=== PATIENT | male | born 1975 | race Caucasian/White ===

== ENCOUNTER 2020-07-03 19:49 | Emergency (ER) | payer OTHER ==
[2020-07-03 21:17] LABS: EOSINOPHIL 3.9 % (0-5); HCT 45.7 % (42.0-52.0); HGB 15.7 g/dl (13.2-18.0); LYMPHOCYTE 25.5 % (15-48); MCH 31.5 pg (25.0-31.0); MCHC 34.4 g/dL (32.0-36.0); MCV 91.8 fL (78.0-100.0); MONOCYTE 6.5 % (0-12); MPV 11.3 fL (6.0-9.5); NEUTROPHIL 62.6 % (41-80); NRBC 0; PLT 286 K/uL (150-400); RBC 4.98 M/uL (4.70-6.00); RDW 12.7 % (11.5-14.0); WBC 7.9 K/uL (4.0-10.5)
[2020-07-03 21:22] LABS: BILIRUBIN NEGATIVE (NEGATIVE); BLOOD NEGATIVE Ery/uL (NEGATIVE); CLARITY CLEAR (CLEAR); COLOR COLORLESS (YELLOW); GLUCOSE (U) NORMAL (NORMAL); LEUKOCYTES NEGATIVE Leu/uL (NEGATIVE); NITRITE NEGATIVE (NEGATIVE); PROTEIN NEGATIVE (NEGATIVE); SPECIFIC GRAVITY <=1.005 (1.001-1.030); UROBILINOGEN 0.2 mg/dL (0.2-1.0); pH 5.5 (5.0-9.0)
[2020-07-03 21:34] LABS: BILIRUBIN - TOTAL 0.3 mg/dL (0.2-1.0); BUN/CREAT RATIO (CALC) 19.4 RATIO; CREATININE 0.98 mg/dL (0.67-1.17); GLOBULIN (CALCULATION) 4.4 g/dL; POTASSIUM 3.5 mmol/L (3.5-5.1); TOTAL PROTEIN 8.4 g/dL (6.4-8.2)
== END 2020-07-03 22:34 | disposition home or self-care (01) ==
LOC: FER 19:49
PROVIDERS: Emergency Medicine
DX: K59.00 Constipation, unspecified (principal); E78.5 Hyperlipidemia, unspecified; F17.220 Nicotine dependence, chewing tobacco, uncomplicated; Z86.16 Personal history of COVID-19
CPT/HCPCS: 36415; 74022; 80053; 81003; 82150; 83690; 85025